=== PATIENT | male | born 1955 | race Caucasian/White ===

== ENCOUNTER → 2021-01-23 00:55 | Outpatient (CLI) | payer MEDICARE, SELFPAY ==
[2021-01-23 18:32] LABS: SARS-CoV-2 RNA PCR Negative
== END ==
PROVIDERS: PCP Family Medicine; Visit Provider Internal Medicine Gastroenterology
DX: Z01.812 Encounter for preprocedural laboratory examination (principal); Z20.822 Contact with and (suspected) exposure to COVID-19
CPT/HCPCS: C9803; U0003; U0005

== ENCOUNTER 2021-01-26 01:02 | Day surgery (SDC) | payer MEDICARE, SELFPAY ==
[2021-01-17 10:20] VITALS: BMI 26.1
[2021-01-26 08:43] VITALS: BP 133/102; PULSE 105; RESP 20; TEMP 36.8; O2SAT 100; BMI 25.8
--- NOTE | 2021-01-26 08:52 | WPDANESEPPF ---
Anes - Initial Pre Proc Eval Procedure: Operation Date: 01/26/21 10:00 Proposed Procedures p Esophagogastroduodenoscopy & Colonoscopy - Clemente Maradiaga MD Date/Time: 01/26/21 08:52 Surgeon: Clemente Maradiaga MD Pre Op Diagnosis: Chronic Anemia Due to GI blood Loss Patient Data Age: 66 Gender: M Height: 5 ft 8 in Weight: 77 kg Last Vital Signs Temp 36.8 C 01/26/21 08:43 Pulse 105 H 01/26/21 08:43 Resp 20 01/26/21 08:43 BP 133/102 H 01/26/21 08:43 Pulse Ox 100 01/26/21 08:43 Allergies Allergy/AdvReac Type Severity Reaction Status Date / Time No Known Allergies Allergy Verified 01/26/21 08:41 Home Medications Medication Instructions Recorded Confirmed Type omega-3 fatty acids 1,000 mg 1,000 mg PO DAILY 03/06/20 01/17/21 History capsule fenofibrate 160 mg tablet 160 mg PO DAILY #90 tablet 10/23/20 01/17/21 Rx lisinopril 20 mg tablet 20 mg PO DAILY #90 tablet 10/23/20 01/17/21 Rx atorvastatin 20 mg tablet 20 mg PO DAILY #90 tablet 11/20/20 01/17/21 Rx amlodipine 2.5 mg PO DAILY 01/17/21 01/17/21 History iitgxkzc-mtv-MU-lycopen-lutein 1 tablet PO DAILY 01/17/21 01/17/21 History [Complete Multi 50+] Patient hx anesthesia problems: none Family hx anesthesia problems: none PMFSH Past Medical History Medical History (Updated 01/26/21 @ 08:52 by Tai Taylor MD) Broken arm (~1982) Essential (primary) hypertension Former smoker quit 07/25/1996 Hepatitis C antibody test negative (02/07/18) Hyperlipidemia Metabolic syndrome Surgical History Surgical History History of appendectomy (~1980) Family History Family History Grandparent Hypertension Sibling Family history of elevated blood lipids Father Acute myocardial infarction, Onset Age: 57 Family history of coronary artery disease Mother Acute myocardial infarction, Onset Age: 54 Family history of coronary artery disease Social History Social History Smoking packs per day: 3 Smoking cigarettes per day: 60.0 Years smoked: 25 Smoking pack-years: 75.00 Smoking status: Former smoker Tobacco type: cigarettes Smoking end date: 07/25/96 Alcohol intake: current Substance use: never Substance use type: does not use Living arrangements: with family Spiritual care concerns: No Anes - Eval Final PreProcedure Day of Procedure 01/26/21 08:52 Patient weight: normal Heart: regular rate and rhythm Lungs: clear to auscultation Airway: Mallampati scale class II Neurological: alert and oriented Last oral intake: >/= 8 hours ASA classification: III Emergent: no Anesthetic plan: proceed Anesthesia type and monitoring: general GIVS and standard monitoring Informed Consent: The patient's anesthetic plan and its attendant risks and benefits were discussed with the patient/family/POA. Questions were solicited and answers provided to the satisfaction of the patient/family/POA.
[2021-01-26] MEDS: LACTATED RINGERS 1,000 ML 150 ML IV CONT (08:57)
[2021-01-26 10:33] VITALS: BP 104/72; PULSE 76; RESP 25; O2SAT 98
[2021-01-26 10:43] VITALS: BP 114/73; PULSE 73; RESP 20; O2SAT 100
[2021-01-26 10:53] VITALS: BP 138/78; PULSE 65; RESP 22; O2SAT 100
--- NOTE | 2021-01-29 16:55 | PM.HPGS ---
History of Present Illness History of Present Illness Consent: Risks, benefits, and alternatives have been discussed and questions answered. Patient agrees to proceed with procedure. Chief complaint: Chronic Anemia Due to GI blood Loss Narrative: Jordy Mosley is a 66 year old male referred for colon cancer screening. He has been found to be anemic and there is concern that it could be due to gastrointestinal disease Review of Systems Review of Systems: All systems reviewed & are unremarkable except as noted in HPI and below PMFSH Past Medical History Medical History Broken arm (~1982) Essential (primary) hypertension Former smoker quit 07/25/1996 Hepatitis C antibody test negative (02/07/18) Hyperlipidemia Metabolic syndrome Surgical History Surgical History History of appendectomy (~1980) Family History Family History Grandparent Hypertension Sibling Family history of elevated blood lipids Father Acute myocardial infarction, Onset Age: 57 Family history of coronary artery disease Mother Acute myocardial infarction, Onset Age: 54 Family history of coronary artery disease Social History Social History Smoking packs per day: 3 Smoking cigarettes per day: 60.0 Years smoked: 25 Smoking pack-years: 75.00 Smoking status: Former smoker Tobacco type: cigarettes Smoking end date: 07/25/96 Alcohol intake: current Substance use: never Substance use type: does not use Living arrangements: with family Spiritual care concerns: No Meds Home Medications and Allergies Home Medications Medication Instructions Recorded Confirmed Type omega-3 fatty acids 1,000 mg 1,000 mg PO DAILY 03/06/20 01/17/21 History capsule fenofibrate 160 mg tablet 160 mg PO DAILY #90 tablet 10/23/20 01/17/21 Rx lisinopril 20 mg tablet 20 mg PO DAILY #90 tablet 10/23/20 01/17/21 Rx atorvastatin 20 mg tablet 20 mg PO DAILY #90 tablet 11/20/20 01/17/21 Rx amlodipine 2.5 mg PO DAILY 01/17/21 01/17/21 History mbgqopcl-tgb-YS-lycopen-lutein 1 tablet PO DAILY 01/17/21 01/17/21 History Allergies Allergy/AdvReac Type Severity Reaction Status Date / Time No Known Allergies Allergy Verified 01/26/21 08:41 Exam Resp: Auscultation: clear to auscultation bilaterally Cardio: Rate: regular rate Rhythm: regular rhythm GI: GI Palp: Yes Soft to palpation and No Tenderness to palpation present (GI) Assessment and Plan Assessment and plan (1) Colon cancer screening: Code(s): Z12.11 - Encounter for screening for malignant neoplasm of colon Status: Acute Assessment and Plan: Colonoscopy with possible biopsy or polypectomy or cautery or injection of substances.
== END 2021-01-26 11:04 | disposition home or self-care (01) ==
PROVIDERS: PCP Family Medicine; Visit Provider Internal Medicine Gastroenterology
PROC: 0DJ08ZZ Inspection of Upper Intestinal Tract, Via Natural or Artificial Opening Endoscopic (ICD-10-PCS; CPT 43235; principal; 2021-01-26 10:00)
DX: Z12.11 Encounter for screening for malignant neoplasm of colon (principal); D50.0 Iron deficiency anemia secondary to blood loss (chronic); K57.30 Diverticulosis of large intestine without perforation or abscess without bleeding; I10 Essential (primary) hypertension; E78.5 Hyperlipidemia, unspecified; Z87.891 Personal history of nicotine dependence
CPT/HCPCS: 43239; G0121; 87081; 88305; J2704; J7120